=== PATIENT | male | born 1975 | race Caucasian/White ===

== ENCOUNTER → 2018-02-05 | Outpatient (CLI) | payer OTHER, BC ==
--- NOTE | 2018-02-05 16:12 | KCIC ---
MRI left knee without contrast dated 02/05/2018 2:45 PM Indication: Knee pain history of fall in December 2017. Medial and lateral pain.. Comparison: No comparison is available. Technique: Routine multiplanar multisequence imaging performed. . Findings: Mild tricompartmental hypertrophic change with small marginal osteophytes. Thinning and surface irregularity of the articular cartilage throughout. There is near full-thickness cartilage loss at the weightbearing surfaces lateral femoral condyle lateral tibial plateau. There is full-thickness cartilage fissuring at the lateral patellar facet and patellar apex and medial and lateral femoral trochlea and trochlear groove. There is a small to moderate size joint effusion. Tiny popliteal cyst. No intra-articular loose body. Anterior cruciate and posterior cruciate ligaments intact. Medial and lateral collateral complexes are intact. Iliotibial band, popliteus tendon and pes anserine complex within normal limits. Quadriceps and patellar tendon are intact. No abnormality of the medial or lateral retinaculum. There is a complex tear anterior horn/body of lateral meniscus. A prominent vertical short axis component at the posterior horn/body junction with extension both to the tibial and femoral articular surfaces. There is also a irregular linear defect extending into the anterior horn and body. Mild blunting of the free edge of the anterior horn/body junction. There are adjacent para meniscal cysts measuring up to 12 mm. The posterior horn is intact. Medial meniscus is normal in morphology and signal. IMPRESSION: 1. Complex tear anterior horn/body of lateral meniscus with small adjacent para meniscal cyst. 2. 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 There is full-thickness cartilage loss of the anterior compartment. 3. Small joint effusion and tiny popliteal cyst. Electronically signed by: Gagan Lo MD (02/05/2018 4:09 PM) [id number]
== END | disposition home or self-care (01) ==
LOC: KCIC MRI 14:24
PROVIDERS: ATTEND Family Medicine
DX: S83.282A Other tear of lateral meniscus, current injury, left knee, initial encounter (principal); M17.12 Unilateral primary osteoarthritis, left knee; M25.462 Effusion, left knee; X58.XXXA Exposure to other specified factors, initial encounter; Y93.89 Activity, other specified; Y92.89 Other specified places as the place of occurrence of the external cause; Y99.8 Other external cause status
CPT/HCPCS: 73721